=== PATIENT | female | born 1940 | race Caucasian/White ===

== ENCOUNTER 2022-09-25 18:28 | Emergency (ER) | payer MEDICARE ==
[~2022-09-25] VITALS: Ht 154.9 cm; Wt 49.9 kg
--- NOTE | 2022-09-25 18:28 | NUR ---
PT BIBA ALS ER BED 8
[2022-09-25 18:33] VITALS: BP 99/54
[2022-09-25] MEDS ORDERED: ACETAMINOPHEN EXTRA STRENGTH 500 MG TAB PO ONE (18:55)
[2022-09-25] MEDS ORDERED: BACITRACIN OINT 500 UNITS/GM PKT TP ONE (18:55)
[2022-09-25 19:14] LABS: BASOPHILS # (AUTO) 0.1 K/uL (0.00-0.22); BASOPHILS % (AUTO) 1.1 % (0.0-2.0); EOSINOPHILS # (AUTO) 0.1 K/uL (0-0.4); EOSINOPHILS % (AUTO) 2.2 % (0.0-4.0); HEMATOCRIT 25.3 % (36-48); HEMOGLOBIN 7.9 g/dL (12.0-16.0); LYMPHOCYTES # (AUTO) 1.5 K/uL (2.5-16.5); LYMPHOCYTES % (AUTO) 26.8 % (20.5-51.1); MEAN CORPUSCULAR HEMOGLOBIN 23 pg (27-31); MEAN CORPUSCULAR HGB CONC 31 g/dL (33-37); MEAN CORPUSCULAR VOLUME 74.2 fL (80-94); MONOCYTES # (AUTO) 0.7 K/uL (0.8-1.0); MONOCYTES % (AUTO) 12.4 % (1.7-9.3); NEUTROPHILS # (AUTO) 3.1 K/uL (1.8-7.7); NEUTROPHILS % (AUTO) 57.5 % (42.2-75.2); PLATELET COUNT (AUTO) 135 K/uL (140-450); RED BLOOD CELL COUNT(AUTO) 3.41 MIL/uL (4.20-5.40); RED CELL DISTRIBUTION WIDTH 21.5 % (11.6-13.7); WHITE BLOOD COUNT (AUTO) 5.4 K/uL (4.8-10.8)
--- NOTE | 2022-09-25 19:32 | NUR ---
PT TO CT
[2022-09-25 19:36] LABS: ALBUMIN 2.5 g/dL (3.4-5.0); ANION GAP 11.4 (8-16); ASPARTATE AMINOTRANSFERASE 62 U/L (15-37); CARBON DIOXIDE 24.4 mmol/L (21-32); CHLORIDE 101 mmol/L (98-107); GLUCOSE 274 mg/dL (74-106); POTASSIUM 3.8 mmol/L (3.5-5.1); SODIUM SERUM 133 mmol/L (136-145); UREA NITROGEN, BLOOD 23 mg/dL (7-18)
--- NOTE | 2022-09-25 20:33 | NUR ---
PT RESTING IN BED RESP EVEN AND UNLABORED. 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 THROBBING ACHE 8/10 PAIN LEVEL. MID STERNAL CP . DENIES SOB . PT HAS CARDIAC HX . A&OX4 PT LIVES WITH ROOMMATES . USES A WALKER TO AMBULATE. PT FALL S/P CP. BED AT LOWEST POSITION SIDE RAILS UP X2 ADHESIVE IODINE MEPERIDINE METFORMIN MULTI MED HX
--- NOTE | 2022-09-25 21:56 | NUR ---
PATIENTS DAUGHTER CALLED. UPDATED DAUGHTER ON PT CONDITION. DR BUCHANAN AT BEDSIDE
[2022-09-25] MEDS ORDERED: ACET-10509 PO (21:59)
[2022-09-25 22:40] VITALS: BP 108/45
--- NOTE | 2022-09-25 22:40 | NUR ---
Patient discharged with v/s stable. Written and verbal after care instructions given and explained. Patient verbalized understanding. Wheel Chair Assisted with by parent. All questions addressed prior to discharge. Advised to follow up with PMD.
== END 2022-09-25 22:40 | disposition home or self-care (01) ==
LOC: MED 18:28
DX: S81.811A Laceration without foreign body, right lower leg, initial encounter (principal); S70.02XA Contusion of left hip, initial encounter; R07.89 Other chest pain; Z88.8 Allergy status to other drugs, medicaments and biological substances; Z91.040 Latex allergy status; W18.30XA Fall on same level, unspecified, initial encounter; Y93.89 Activity, other specified; Y92.89 Other specified places as the place of occurrence of the external cause; Y99.8 Other external cause status
CPT/HCPCS: 36415; 70450; 71250; 72125; 80053; 84484; 85025; 93005; 99285